=== PATIENT | female | born 1995 | race Caucasian/White ===

== ENCOUNTER 2019-08-20 16:04 | Emergency (ER) | payer OTHER, SELFPAY ==
[2019-08-20 16:09] VITALS: BP 125/75; PULSE 81; RESP 16; TEMP 36.8; O2SAT 98
[2019-08-20 16:58] LABS: Add Manual Diff / Slide Review NO; Basophils Absolute Auto 0 /uL (0-100); Basophils Percent Auto 0.6 % (0-2); Eosinophils Absolute Auto 100 /uL (0-450); Eosinophils Percent Auto 0.7 % (2-4); Hematocrit 42.7 % (36-46); Hemoglobin 14.8 g/dL (12.0-16.0); Lymphocytes Absolute Auto 1300 /uL (1100-4500); Lymphocytes Percent Auto 17.7 % (25-40); Mean Corpuscular HGB Conc 34.7 % (30-36); Mean Corpuscular Hemoglobin 32.9 PG (26-34); Mean Corpuscular Volume 94.7 fL (80-100); Monocytes Absolute Auto 600 /uL (0-900); Monocytes Percent Auto 7.9 % (3-14); Neutrophils Absolute Auto 5400 /uL (1500-7000); Neutrophils Percent Auto 73.1 % (50-75); Platelet Count 237 X10^3/uL (150-400); Red Cell Distribution Width 13.8 % (11.6-14.8); White Blood Cell Count 7.4 X10^3/uL (4.5-11.0)
[2019-08-20 17:07] LABS: Alanine Aminotransferase 18 IU/L (<35); Albumin 4.5 g/dL (3.5-5.0); Albumin Globulin Ratio 1.5 (1.0-2.8); Alkaline Phosphatase 68 U/L (38-126); Aspartate Aminotransferase 38 IU/L (14-36); BUN Creatinine Ratio 20.8 (6-22); Bilirubin Total 0.4 mg/dL (0.2-1.3); Blood Urea Nitrogen 20 mg/dL (7-17); Calcium 9.9 mg/dL (8.4-10.2); Carbon Dioxide 25 mmol/L (22-32); Chloride 100 mmol/L (98-107); Estimated Glomerular Filt Rate > 60.0 mL/min (>60); Glucose 80 mg/dL (70-100); HEMOLYSIS < 15 (0-50); Lipase 50 U/L (23-300); Potassium 3.5 mmol/L (3.4-5.1); Sodium 138 mmol/L (137-145); Total Protein 7.5 g/dL (6.3-8.2)
[2019-08-20 17:22] LABS: Bacteria Urine Few (2-10); Culture Indicated Urine Specimen Cultured; RBC Urine 0-1/HPF (0-5/HPF); Squamous Epithelial Cell Urine 0-1 /HPF (0-5/HPF); Transitional Epi Cells Urine 5-10/HPF (0-5/HPF); WBC Urine 30-100/HPF (0-5/HPF)
[2019-08-20] MEDS: cephALEXin 250 MG PREPACK 1 BOTTLE MISC (18:16)
[2019-08-20 18:22] VITALS: BP 133/88; PULSE 67; RESP 14; O2SAT 99
--- NOTE | 2019-08-21 00:10 | ED_ITS ---
HPI - Female Genitourinary <MIRI Livingston - Last Filed: 08/21/19 00:26> General Chief complaint: Abdominal Pain Stated complaint: pain in kidneys, dark urine Time Seen by Provider: 08/20/19 16:25 Source: patient Mode of arrival: Ambulatory Limitations: no limitations History of Present Illness HPI Narrative: This is a 24-year-old female, smoker, who has history of kidney injury from dehydration and hyperkalemia presents to ED with mother with chief complain of dark and odorous urine for last 2 days. Precedently, patient had right flank pain about a week ago which has been slightly better last 2 days. Patient reports urinary frequency but denies dysuria, hematuria or urgency. Patient reports no history of UTIs and recent antibiotic medication use. Denies fever, chills, nausea or vomiting. Patient mariano had constant aching, deep pain in right flank which increases with movement. Patient has abnormal kidney function test as of 3 years ago. She has taken Aleve for discomfort. LMP 2 weeks ago which was normal for her. Related Data Previous Rx's Medication Instructions Recorded buprenorphine-naloxone 2 tab SUBLINGUAL QDAY #60 tab 05/22/16 cephalexin [Keflex] 500 mg PO Q6H 10 Days #40 cap 08/20/19 Allergies Allergy/AdvReac Type Severity Reaction Status Date / Time No Known Drug Allergies Allergy Verified 08/21/19 00:15 Review of Systems <MIRI Livingston - Last Filed: 08/21/19 00:26> Review of Systems Narrative: General: Denies fever, chills, fatigue, malaise, sweats. HEENT: Denies sinus pain, ear pain, sore throat, difficulty swallowing, dizziness. Respiratory: Denies dyspnea, cough, wheezing, hemoptysis, sputum. Cardiovascular: Denies chest pain, palpitations, orthopnea, edema. Gastrointestinal: Denies nausea, vomiting, abdominal pain, diarrhea, constipation, melena. : See HPI Musculoskeletal: Denies weakness, joint pain or bony pain. Skin: Denies rash, skin lesions, or other. Neurologic: Denies weakness, headache, numbness, change in speech, confusion, seizures, incoordination. Psychiatric: No concerning psychosocial issues. 12-point review of systems is negative except for those stated above. Patient History <MIRI Livingston - Last Filed: 08/21/19 00:26> Smoking Status: Current every day smoker alcohol intake frequency: 0-2 drinks per day Substance Use Type: does not use Exam <MIRI Livingston - Last Filed: 08/21/19 00:26> Narrative Exam Narrative: GEN: Alert, oriented x 3, well appearing and nourished, appears to be sleepy. Head: Normal cephalic, atraumatic. No scalp or temporal tenderness, palpable mass or rash. EYES: Pupils are equal, round, and reactive to light and accommodation. Extraocular muscles are intact bilaterally. There is no subconjunctival hemorrhage, exudate and sclera non-icteric. ENT: Hearing grossly intact. Nose without bleeding, purulent discharge or deviation. Mucous membrane moist, no mucosal lesion. Throat without erythema, tonsillar hypertrophy or exudate. Uvula in midline, airway patent. Neck: Trachea in midline. No JVD, non-tender without lymphadenopathy. No masses or thyroid megaly. Supple, non-tender and no meningeal signs. CARDIAC: Normal regular rate and rhythm without murmurs, gallops, or rubs. No chest wall tenderness. No peripheral edema, cyanosis or pallor. Capillary refill is less than 2 seconds. RESPIRATORY: Lungs are clear to auscultate bilaterally. No cough, wheezes, rales, or rhonchi. No stridor, respiratory distress, increase work of breathing, or accessary muscle used. ABD: Abdomen soft, nontender and non-distended. No guarding or rebound tend erness to palpate. Bowel sounds are normal in all 4 quadrants. There is no palpable masses or organomegaly. EXT: Full painless ROM of all extremities with no loss of sensation, strength, effusion or edema. SKIN: Warm, dry, normal color for patient. No erythema, lesions or rash over visible areas. BACK: Nontender without deformity or crepitance. Mild right the vertebral angle pain percuss. NEUROLOGICAL: Alert and oriented to place, time and person. Sensation and motor function intact bilaterally. No facial droops, dysphasia. PSYCHIATRIC: Good judgement and reason, without hallucinations, abnormal affect or abnormal behaviors during the examination. Patient is not suicidal. Initial Vital Signs Initial Vital Signs: Vital Signs Temperature 98.2 F 08/20/19 16:09 Pulse Rate 81 08/20/19 16:09 Respiratory Rate 16 08/20/19 16:09 Blood Pressure 125/75 08/20/19 16:09 Pulse Oximetry 98 08/20/19 16:09 <Reynaldo Barone MD - Last Filed: 08/25/19 21:18> Initial Vital Signs Initial Vital Signs: Vital Signs Temperature 98.2 F 08/20/19 16:09 Pulse Rate 81 08/20/19 16:09 Respiratory Rate 16 08/20/19 16:09 Blood Pressure 125/75 08/20/19 16:09 Pulse Oximetry 98 08/20/19 16:09 Scores <MIRI Livingston - Last Filed: 08/21/19 00:26> GCS Merced coma scale eye opening: Spontaneous Ghazala coma scale verbal response: Orientated Ghazala coma scale motor response: Obey commands Merced coma scale total score: 15 qSOFA Altered Mental Status (GCS <15): No Respiratory rate greater than/equal to 22: No Systolic blood pressure less than or equal to 100: No qSOFA Total: 0 0-1 Not High Risk 1-3 High risk Course <MIRI Livingston - Last Filed: 08/21/19 00:26> Orders Ordered: Discontinued Medications Cefazolin Sodium (Keflex 250 Mg Prepack) 1 bottle MISC SEEINSTR ONE Stop: 08/20/19 18:11 Last Admin: 08/20/19 18:16 Dose: 1 bottle Documented by: SEBASTIÁN Cephalexin HCl (Keflex 250 Mg/5 Ml Prepack) 1 bottle MISC SEEINSTR ONE Stop: 08/20/19 17:59 Vital Signs Vital signs: Vital Signs - 8 hr 08/20/19 18:22 Pulse Rate 67 Respiratory Rate 14 Blood Pressure 133/88 Pulse Oximetry 99 <Reynaldo Barone MD - Last Filed: 08/25/19 21:18> Orders Ordered: Discontinued Medications Cefazolin Sodium (Keflex 250 Mg Prepack) 1 bottle MISC SEEINSTR ONE Stop: 08/20/19 18:11 Last Admin: 08/20/19 18:16 Dose: 1 bottle Documented by: SEBASTIÁN Cephalexin HCl (Keflex 250 Mg/5 Ml Prepack) 1 bottle MISC SEEINSTR ONE Stop: 08/20/19 17:59 Vital Signs Vital signs: Vital Signs - 8 hr 08/20/19 18:22 Pulse Rate 67 Respiratory Rate 14 Blood Pressure 133/88 Pulse Oximetry 99 MDM - Female Genitourinary <Nir GuerinMIRI - Last Filed: 08/21/19 00:26> Differential Diagnosis Differential diagnosis: Likely urinary tract infection, cystitis and other (Pyelonephritis, decreased kidney function, kidney stone) Medical Records Attestation: I reviewed the patient's medical records. Lab Data Attestation: I reviewed the patient's lab results. Result diagrams: 08/20/19 16:50 08/20/19 16:50 Labs: Lab Results 08/20/19 08/20/19 08/20/19 Range/Units 16:50 16:50 16:50 WBC 7.4 (4.5-11.0) X10^3/uL RBC 4.50 (4.0-5.2) X10^6/uL Hgb 14.8 (12.0-16.0) g/dL Hct 42.7 (36-46) % MCV 94.7 (80-100) fL MCH 32.9 (26-34) PG MCHC 34.7 (30-36) % RDW 13.8 (11.6-14.8) % Plt Count 237 (150-400) X10^3/uL Neut % (Auto) 73.1 (50-75) % Lymph % (Auto) 17.7 L (25-40) % [place] % (Auto) 7.9 (3-14) % Eos % (Auto) 0.7 L (2-4) % Baso % (Auto) 0.6 (0-2) % Neut # (Auto) 5400 (3791-0584) /uL Lymph # (Auto) 1300 (6603-4802) /uL [place] # (Auto) 600 (0-900) /uL Eos # (Auto) 100 (0-450) /uL Baso # (Auto) 0 (0-100) /uL Sodium 138 (137-145) mmol/L Potassium 3.5 (3.4-5.1) mmol/L Chloride 100 (98-107) mmol/L Carbon Dioxide 25 (22-32) mmol/L BUN 20 H (7-17) mg/dL Creatinine 0.96 (0.52-1.04) mg/dL Estimated GFR > 60.0 (>60) mL/min BUN/Creatinine Ratio 20.8 (6-22) Glucose 80 (70-100) mg/dL Calcium 9.9 (8.4-10.2) mg/dL Total Bilirubin 0.4 (0.2-1.3) mg/dL AST 38 H (14-36) IU/L ALT 18 (<35) IU/L Alkaline Phosphatase 68 (38-126) U/L Total Protein 7.5 (6.3-8.2) g/dL Albumin 4.5 (3.5-5.0) g/dL Globulin 3.0 (1.7-4.1) g/dL Albumin/Globulin Ratio 1.5 (1.0-2.8) Lipase 50 (23-300) U/L Urine RBC 0-1/hpf (0-5/HPF) Urine WBC 30-100/hpf H (0-5/HPF) Ur Squamous Epith Cells 0-1 /hpf (0-5/HPF) Ur Transition Epith Cell 5-10/hpf H (0-5/HPF) Urine Bacteria Few (2-10) H (None) Ur Culture Indicated? Specimen cultured Point of Care Testing Test Results Negative Urine Dip Bedside Urine Glucose Negative Bedside Urine Bilirubin - Negative Bedside Urine Ketone - Negative Urine Specific [place] 1.015 Bedside Urine Occult Blood +++ Bedside Urine pH 6.0 Bedside Urine Protein ++ 100 Bedside Urine Urobilinogen - Negative Bedside Urine Nitrite - Negative Bedside Urine Leukocytes ++ 125 Esterase MDM Narrative Medical decision making narrative: Physical exam is unremarkable. Patient is afebrile. Does not appears to be toxic. Urine test was negative. Positive for urine leukoesterase, protein, blood. Negative for and urine nitrite. Given patient's history of acute tubular necrosis and hyperkalemia, labs were drawn. No leukocytosis. Normal potassium count of 3.5. Normal estimated GFR of greater than 60 with creatinine level of 0.96. Patient may be mildly dehydrated with elevated BUN of 20. Urine micro tests shows high urine WBC of 30-100/hpf with few bacteria (2-10) and urine transition epithelia cells. Urine cultures pending. There was a small amount of urine RBC. Will treat patient as pyelonephritis for patient's symptoms with Keflex 500 mg q.i.d. dose for 7 days. She may have passed kidney stone since her back pain preceded the urinary symptoms which has been improving last 2 days. Patient inform she will receive a phone call if she requires different antibiotic medication. First dose of antibiotic medication has been given in ED and discharged to home with remaining doses. Patient advised to hydrate well. Discussed with patient and patient verbalized understanding and agreement with treatment plan. <Reynaldo Barone MD - Last Filed: 08/25/19 21:18> Lab Data Labs: Lab Results 08/20/19 08/20/19 08/20/19 Range/Units 16:50 16:50 16:50 WBC 7.4 (4.5-11.0) X10^3/uL RBC 4.50 (4.0-5.2) X10^6/uL Hgb 14.8 (12.0-16.0) g/dL Hct 42.7 (36-46) % MCV 94.7 (80-100) fL MCH 32.9 (26-34) PG MCHC 34.7 (30-36) % RDW 13.8 (11.6-14.8) % Plt Count 237 (150-400) X10^3/uL Neut % (Auto) 73.1 (50-75) % Lymph % (Auto) 17.7 L (25-40) % [place] % (Auto) 7.9 (3-14) % Eos % (Auto) 0.7 L (2-4) % Baso % (Auto) 0.6 (0-2) % Neut # (Auto) 5400 (6376-0989) /uL Lymph # (Auto) 1300 (0090-3765) /uL [place] # (Auto) 600 (0-900) /uL Eos # (Auto) 100 (0-450) /uL Baso # (Auto) 0 (0-100) /uL Sodium 138 (137-145) mmol/L Potassium 3.5 (3.4-5.1) mmol/L Chloride 100 (98-107) mmol/L Carbon Dioxide 25 (22-32) mmol/L BUN 20 H (7-17) mg/dL Creatinine 0.96 (0.52-1.04) mg/dL Estimated GFR > 60.0 (>60) mL/min BUN/Creatinine Ratio 20.8 (6-22) Glucose 80 (70-100) mg/dL Calcium 9.9 (8.4-10.2) mg/dL Total Bilirubin 0.4 (0.2-1.3) mg/dL AST 38 H (14-36) IU/L ALT 18 (<35) IU/L Alkaline Phosphatase 68 (38-126) U/L Total Protein 7.5 (6.3-8.2) g/dL Albumin 4.5 (3.5-5.0) g/dL Globulin 3.0 (1.7-4.1) g/dL Albumin/Globulin Ratio 1.5 (1.0-2.8) Lipase 50 (23-300) U/L Urine RBC 0-1/hpf (0-5/HPF) Urine WBC 30-100/hpf H (0-5/HPF) Ur Squamous Epith Cells 0-1 /hpf (0-5/HPF) Ur Transition Epith Cell 5-10/hpf H (0-5/HPF) Urine Bacteria Few (2-10) H (None) Ur Culture Indicated? Specimen cultured Point of Care Testing Test Results Negative Urine Dip Bedside Urine Glucose Negative Bedside Urine Bilirubin - Negative Bedside Urine Ketone - Negative Urine Specific [place] 1.015 Bedside Urine Occult Blood +++ Bedside Urine pH 6.0 Bedside Urine Protein ++ 100 Bedside Urine Urobilinogen - Negative Bedside Urine Nitrite - Negative Bedside Urine Leukocytes ++ 125 Esterase Discharge Plan Departure Patient Disposition: Home Clinical Impression: Pyelonephritis Discharge Date/Time: 08/20/19 18:22 Instructions: DI for Kidney Infection Activity Restrictions/Additional Instructions: You have been diagnosed with [pyelonephritis. Blood tests were unremarkable. Normal kidney function test with normal potassium level. No increase in white count indicating severe infection. Urine culture is pending. You will receive a phone call from a if you require different antibiotic medication.]. What to do: *Take your medications as directed. Please start Keflex 4 times a day for next 10 days. Please increase oral hydration with water. This medication has been transmitted to [facility] in [place]. *Follow up with your primary care provider in 2-3 days, call for an appointment. Let them know you were seen in the ED and that we asked you to be seen in follow up. *Return to ED if you have any new, worsening, or concerning symptoms, such as [chest pain, breathing difficulty, unable to tolerate fluids, increasing pain, high fever, or any acute concerns]. Prescriptions: New cephalexin [Keflex] 500 mg capsule 500 mg PO Q6H 10 Days Qty: 40 RF: 0 No Action buprenorphine-naloxone 8 MG/2 MG tablet, sublingual 2 tab Sublingual QDAY Qty: 60 RF: 0 Referrals: [facility] [Outside]
== END 2019-08-20 18:22 | disposition home or self-care (01) ==
PROVIDERS: Emergency Medicine; Emergency Provider Nurse Practitioner Family; PCP Family Medicine
DX: N12 Tubulo-interstitial nephritis, not specified as acute or chronic (principal)
CPT/HCPCS: 80053; 81003; 81015; 81025; 83690; 85025; 87077; 87086; 87186; 99282; 99283